=== PATIENT | male | born 1970 | race Caucasian/White ===

== ENCOUNTER 2020-05-27 08:56 | Observation (INO) | payer BC ==
[~2020-05-27] VITALS: Ht 175.3 cm; Wt 74.8 kg
[2020-05-27] VITALS (7 sets, daily range): BP systolic 105–119; BP diastolic 52–79
[2020-05-27] MEDS ORDERED: SODIUM CHLORIDE 0.9% 1000ML 1,000 ML IV STA (09:02)
--- NOTE | 2020-05-27 09:07 | Emergency Department Note ---
History of Present Illnes History of Present Illness Chief Complaint: Abdominal Complaints History of Present Illness This is a 49 year old male with migratory abd pain which started yesterday at 0230 generalized and has now localized to the RLQ region . Onset (how long ago): day(s) Radiation: Reports abdomen Severity: moderate Onset quality: gradual Duration (how long): day(s) (1) Timing of current episode: constant Progression: worsening Chronicity: new Context: Denies recent illness, Denies recent surgery, Denies recent immobilization, Denies recent travel, Denies trauma/injury, Denies new medications, Denies hx of DVT/PE, Denies non-compliance w/ medications, Denies other Relieving factors: none Exacerbating factors: none Associated symptoms: Denies denies other symptoms, Denies confusion, Denies chest pain, Denies cough, Denies diaphoresis, Denies fever/chills, Denies headaches, Denies loss of appetite, Denies malaise, Denies nausea/vomiting, Denies rash, Denies seizure, Denies shortness of breath, Denies syncope, Denies weakness, Denies other Treatments prior to arrival: none Past Medical/Family History Physician Review I have reviewed the patient's past medical and family history. Any updates have been documented here. Past Medical History Recent Fever: No Clinical Suspicion of Infectio: No New/Unexplained Change in Ment: No Past Medical History: None Past Surgical History: None Other Surgery: colonoscopy Social History Smoking Cessation: Never Smoker Alcohol Use: None Any Illegal Drug Use: No Review of Systems Review of Systems Constitutional: Reports no symptoms EENTM: Reports no symptoms Cardiovascular: Reports no symptoms Respiratory: Reports no symptoms Gastrointestinal: Reports abdominal pain Genitourinary: Reports no symptoms Musculoskeletal: Reports no symptoms Integumentary: Reports no symptoms Neurological: Reports no symptoms Psychological: Reports no symptoms Endocrine: Reports no symptoms Hematological/Lymphatic: Reports no symptoms Physical Exam Related Data Allergies: Coded Allergies: No Known Allergies (Unverified , 05/27/20) Physical Exam CONSTITUTIONAL Constitutional: Present well-developed, Present well-nourished HENT HENT: Present normocephalic, Present atraumatic, Present oropharynx clear/moist, Present nose normal HENT L/R: Present left ext ear normal, Present right ext ear normal EYES Eyes: Reports PERRL, Reports conjunctivae normal NECK Neck: Present ROM normal PULMONARY Pulmonary: Present effort normal, Present breath sounds normal CARDIOVASCULAR Cardiovascular: Present regular rhythm, Present heart sounds normal, Present capillary refill normal, Present normal rate GASTROINTESTINAL Abdominal: Present soft, Present bowel sounds normal, Present tender (RLQ) GENITOURINARY Genitourinary: Present exam deferred SKIN Skin: Present warm, Present dry MUSCULOSKELETAL Musculoskeletal: Present ROM normal NEUROLOGICAL Neurological: Present alert, Present oriented x 3, Present no gross motor or sensory deficits PSYCHOLOGICAL Psychological: Present mood/affect normal, Present judgement normal Results Laboratory Lab results reviewed: Yes Laboratory comments Laboratory Tests Test 05/27/20 09:17 05/27/20 09:16 Urine Color Yellow (YELLOW) Urine Clarity Clear (CLEAR) Urine pH 8.5 (5 - 7) Urine Specific [place] 1.020 (1.010-1.025) Urine Protein Negative (NEGATIVE) Urine Glucose (UA) Negative (NEGATIVE) Urine Ketones Negative (NEGATIVE) Urine Blood Negative (NEGATIVE) Urine Nitrite Negative (NEGATIVE) Urine Bilirubin Negative (NEGATIVE) Urine Urobilinogen 1 mg/dL (0.2 - 1) Urine Leukocyte Esterase Negative (NEGATIVE) Urine RBC 0-5 /HPF (0-5) Urine WBC 0-5 /HPF (0-5) Urine Epithelial Cells Few /LPF (NONE) Urine Bacteria Rare /HPF (NONE) White Blood Count 4.79 x10e3/uL (4.8-10.8) Red Blood Count 4.31 x10e6/uL (4.3-5.7) Hemoglobin 13.5 g/dL (14.0-18.0) Hematocrit 38.4 % (38.2-49.6) Mean Corpuscular Volume 89.1 fL (81-99) Mean Corpuscular Hemoglobin 31.3 pg (28-32) Mean Corpuscular Hemoglobin Concent 35.2 g/dL (31-35) Red Cell Distribution Width 12.7 % (11.7-14.4) Platelet Count 204 x10e3/uL (140-360) Neutrophils (%) (Auto) 49.6 % (38.7-80.0) Lymphocytes (%) (Auto) 33.2 % (18.0-39.1) Monocytes (%) (Auto) 10.4 % (4.4-11.3) Eosinophils (%) (Auto) 5.8 % (0.0-6.0) Basophils (%) (Auto) 0.8 % (0.0-1.0) Neutrophils # (Auto) 2.4 (2.1-6.9) Lymphocytes # (Auto) 1.6 (1.0-3.2) Monocytes # (Auto) 0.5 (0.2-0.8) Eosinophils # (Auto) 0.3 (0.0-0.4) Basophils # (Auto) 0.0 (0.0-0.1) Absolute Immature Granulocyte (auto 0.01 x10e3/uL (0-0.1) Sodium Level 140 mmol/L (136-145) Potassium Level 4.4 mmol/L (3.5-5.1) Chloride Level 105 mmol/L (98-107) Carbon Dioxide Level 26 mmol/L (22-29) Anion Gap 13.4 mmol/L (8-16) Blood Urea Nitrogen 13 mg/dL (7-26) Creatinine 1.16 mg/dL (0.72-1.25) Estimat Glomerular Filtration Rate > 60 ML/MIN (60-) BUN/Creatinine Ratio 11 (6-25) Glucose Level 88 mg/dL (74-118) Calcium Level 9.0 mg/dL (8.4-10.2) Total Bilirubin 0.9 mg/dL (0.2-1.2) Aspartate Amino Transf (AST/SGOT) 23 IU/L (5-34) Alanine Aminotransferase (ALT/SGPT) 19 IU/L (0-55) Alkaline Phosphatase 44 IU/L (40-150) Total Protein 7.2 g/dL (6.5-8.1) Albumin 3.9 g/dL (3.5-5.0) Globulin 3.3 g/dL (2.3-3.5) Albumin/Globulin Ratio 1.2 (0.8-2.0) Lipase 17 U/L (8-78) Imaging Imaging results reviewed: Yes Impressions [place] [address] Patient Name: CASIE KHAN MR #: [id number] : 1970 Age/Sex: 49/M Req #: [id number] Adm Physician: Ordered by: JACKIE SMALL DO Report #: [id number] Location: ER Room/Bed: Procedure: [id number] CT/CT ABDOMEN/PELVIS W Exam Date: 05/27/20 Exam Time: 1015 REPORT STATUS: Signed EXAM: CT Abdomen and Pelvis WITH contrast INDICATION: Right lower quadrant abdominal pain. COMPARISON: None. TECHNIQUE: Abdomen and pelvis were scanned utilizing a multidetector helical scanner from the lung base to the pubic symphysis after administration of IV contrast. Coronal and sagittal reformations were obtained. Routine protocol was performed. Scan was performed when during portal venous phase. IV CONTRAST: 150 mL of Omnipaque 300 ORAL CONTRAST: Gastrografin and water mixture. RADIATION DOSE: Total DLP: 282.84 mGy*cm Estimated effective dose: (DLP x 0.015 x size factor) mSv COMPLICATIONS: None FINDINGS: LINES and TUBES: None. LOWER THORAX: 5 mm noncalcified nodule in the lateral left lung base on image 13 series 2. HEPATOBILIARY: No focal hepatic lesions. No biliary ductal dilation. GALLBLADDER: No radio-opaque stones or sludge. No wall thickening. SPLEEN: No splenomegaly. Millimeter low-attenuation lesion in the posterior inferior spleen on sagittal image 100 isn't specific, however, most likely benign in etiology. PANCREAS: No focal masses or ductal dilatation. ADRENALS: No adrenal nodules KIDNEYS/URETERS: Kidneys enhance symmetrically. No hydronephrosis. 4 mm low-attenuation lesion in the anterior lower pole of the right kidney is too small to be characterize, however, most likely a small cyst.. No stones. GI TRACT: No abnormal distention, wall thickening, or evidence of bowel obstruction. Appendix is dilated up to 1.1 cm in diameter, associated with surrounding fat stranding as seen on axial image 45 series 2, consistent with acute appendicitis. PELVIC ORGANS/BLADDER: Unremarkable. LYMPH NODES: No lymphadenopathy. VESSELS: Unremarkable. PERITONEUM / RETROPERITONEUM: No free air or fluid. BONES: Unremarkable. SOFT TISSUES: Unremarkable. IMPRESSION: 1. Acute noncomplicated appendicitis. No evidence of perforation or abscess formation. Signed by: Dr. Chuy Morris M.D. on 05/27/2020 10:41 AM Dictated By: RODERICK MORRIS MD, MD [id number] Transcribed By: MARY ANN on 05/27/20 1041 COPY TO: JACKIE SMALL DO~ Assessment & Plan Medical Decision Making MDM 49 yom presents with abdominal pain. CBC, CMP, UA and CTS ordered to r/o appendicitis, COVID-19 infection diverticulitis, UTI, kidney stone, perforated viscus, obstruction, ischemia, and biliary pathology Reassessment Reassessment time: 11:01 Reassessment Case d/w with Dr Yulissa Bajwa who agreed to see patient as a talent acquisition consultant Assessment & Plan Final Impression: (1) Appendicitis Depart Disposition: ADMITTED Medications in the ED Sodium Chloride 1,000 ml @ 0 mls/hr Q0M STAT IV Last administered on 05/27/20at 09:45; Admin Dose 1,000 MLS/HR; Start 05/27/20 at 09:02; Stop 05/27/20 at 09:03 Diatrizoate Meglum/ Diatrizoate Sod 30 ml STK-MED ONCE PO ; Start 05/27/20 at 09:13; Stop 05/27/20 at 09:07; Status DC Sodium Chloride 50 ml @ ud STK-MED ONCE .ROUTE ; Start 05/27/20 at 10:31; Stop 05/27/20 at 10:26; Status DC Iopamidol 74,000 mg STK-MED ONCE INJ ; Start 05/27/20 at 10:32; Stop 05/27/20 at 10:26; Status DC Piperacillin Sod/ Tazobactam Sod 50 ml @ 50 mls/hr Q6H IV ; Start 05/27/20 at 11:00; Stop 06/03/20 at 10:59 JACKIE SMALL DO May 27, 2020 09:07
[2020-05-27] MEDS ORDERED: DIATRIZOATE MEGL/DIATRIZOA SOD 30 ML BTL PO ONE (09:13)
[2020-05-27 09:34] LABS: BASOPHILS % 0.8 % (0.0-1.0); EOSINOPHILS # (AUTO) 0.3 (0.0-0.4); EOSINOPHILS % 5.8 % (0.0-6.0); HEMATOCRIT 38.4 % (38.2-49.6); HEMOGLOBIN 13.5 g/dL (14.0-18.0); LYMPHOCYTES # (AUTO) 1.6 (1.0-3.2); LYMPHOCYTES % 33.2 % (18.0-39.1); MEAN CORPUSCULAR HEMOGLOBIN 31.3 pg (28-32); MEAN CORPUSCULAR HGB CONC 35.2 g/dL (31-35); MEAN CORPUSCULAR VOLUME 89.1 fL (81-99); MONOCYTES # (AUTO) 0.5 (0.2-0.8); MONOCYTES % 10.4 % (4.4-11.3); NEUTROPHILS # (AUTO) 2.4 (2.1-6.9); NEUTROPHILS % 49.6 % (38.7-80.0); PLATELET COUNT 204 x10e3/uL (140-360); RED BLOOD COUNT 4.31 x10e6/uL (4.3-5.7); RED CELL DISTRIBUTION WIDTH 12.7 % (11.7-14.4)
[2020-05-27 09:44] LABS: CLARITY,URINE CLEAR (CLEAR); COLOR,URINE YELLOW (YELLOW)
[2020-05-27 09:45] LABS: BILIRUBIN,URINE NEGATIVE (NEGATIVE); KETONES,URINE NEGATIVE (NEGATIVE); LEUKOCYTE ESTERASE ,URINE NEGATIVE (NEGATIVE); NITRITE,URINE NEGATIVE (NEGATIVE); PROTEIN,URINE DIPSTICK NEGATIVE (NEGATIVE); RBC,URINE 0-5 /HPF (0-5); URINE UROBILINOGEN 1 mg/dL (0.2 - 1); WBC,URINE (MAN) 0-5 /HPF (0-5)
[2020-05-27 09:46] LABS: BACTERIA,URINE RARE /HPF; EPITHELIAL CELLS,URINE FEW /LPF
[2020-05-27 09:52] LABS: ALANINE AMINOTRANSFERASE 19 IU/L (0-55); ALBUMIN 3.9 g/dL (3.5-5.0); ALBUMIN/GLOBULIN RATIO 1.2 (0.8-2.0); ALKALINE PHOSPHATASE 44 IU/L (40-150); ANION GAP 13.4 mmol/L (8-16); BLOOD UREA NITROGEN 13 mg/dL (7-26); BUN/CREATININE RATIO 11 (6-25); CARBON DIOXIDE 26 mmol/L (22-29); CHLORIDE 105 mmol/L (98-107); CREATININE, SERUM 1.16 mg/dL (0.72-1.25); EST GLOMERULAR FILTRATION RATE > 60 ML/MIN (60-); GLUCOSE 88 mg/dL (74-118); POTASSIUM 4.4 mmol/L (3.5-5.1); SODIUM 140 mmol/L (136-145)
[2020-05-27] MEDS ORDERED: SODIUM CHLORIDE 0.9% 50ML 50 ML ONE (10:31)
[2020-05-27] MEDS ORDERED: IOPAMIDOL 370 MG/ML 200 ML INFUS..BTL INJ ONE (10:32)
--- NOTE | 2020-05-27 10:45 | Diagnostic Imaging Report ---
EXAM: CT Abdomen and Pelvis WITH contrast INDICATION: Right lower quadrant abdominal pain. COMPARISON: None. TECHNIQUE: Abdomen and pelvis were scanned utilizing a multidetector helical scanner from the lung base to the pubic symphysis after administration of IV contrast. Coronal and sagittal reformations were obtained. Routine protocol was performed. Scan was performed when during portal venous phase. IV CONTRAST: 150 mL of Omnipaque 300 ORAL CONTRAST: Gastrografin and water mixture. RADIATION DOSE: Total DLP: 282.84 mGy*cm Estimated effective dose: (DLP x 0.015 x size factor) mSv COMPLICATIONS: None FINDINGS: LINES and TUBES: None. LOWER THORAX: 5 mm noncalcified nodule in the lateral left lung base on image 13 series 2. HEPATOBILIARY: No focal hepatic lesions. No biliary ductal dilation. GALLBLADDER: No radio-opaque stones or sludge. No wall thickening. SPLEEN: No splenomegaly. Millimeter low-attenuation lesion in the posterior inferior spleen on sagittal image 100 isn't specific, however, most likely benign in etiology. PANCREAS: No focal masses or ductal dilatation. ADRENALS: No adrenal nodules KIDNEYS/URETERS: Kidneys enhance symmetrically. No hydronephrosis. 4 mm low-attenuation lesion in the anterior lower pole of the right kidney is too small to be characterize, however, most likely a small cyst.. No stones. GI TRACT: No abnormal distention, wall thickening, or evidence of bowel obstruction. Appendix is dilated up to 1.1 cm in diameter, associated with surrounding fat stranding as seen on axial image 45 series 2, consistent with acute appendicitis. PELVIC ORGANS/BLADDER: Unremarkable. LYMPH NODES: No lymphadenopathy. VESSELS: Unremarkable. PERITONEUM / RETROPERITONEUM: No free air or fluid. BONES: Unremarkable. SOFT TISSUES: Unremarkable. IMPRESSION: 1. Acute noncomplicated appendicitis. No evidence of perforation or abscess formation. Signed by: Dr. Chuy Rojas M.D. on 05/27/2020 10:41 AM
[2020-05-27] MEDS ORDERED: MORPHINE SULFATE 2 MG/ML SYR 1ML IV PRN ×2 (11:00→15:00)
[2020-05-27] MEDS ORDERED: SODIUM CHLORIDE 0.9% 1000ML 1,000 ML IV SCH (11:00)
[2020-05-27] MEDS ORDERED: ONDANSETRON HCL INJ 2MG/ML 2ML 2 MG/ML VIAL IV PRN ×2 (11:00→15:45)
[2020-05-27] MEDS ORDERED: PIPER-TAZ 3.375 GM 50 ML IV SCH (11:00)
--- OUTSIDE RECORDS SUMMARY | 2020-05-27 11:15 | XMS REPORT | Continuity of Care Document ---
Author Author [facility] Organization [facility] Address [address] [place] [id number] Phone Unavailable Care Team Providers Care Fleecer Name Role Phone JACKIE SMALL Unavailable Problems This patient has no known problems. Allergies, Adverse Reactions, Alerts This patient has no known allergies or adverse reactions. Medications This patient has no known medications. Procedures This patient has no known procedures. Results Test Description Test Time Test Comments Results Result Comments Source CT ABDOMEN/PELVIS W 2020-05-27 10:32:00 [facility] [address] [place] [address] Patient Name: CASIE KHAN MR #: [id number] : 1970 Age/Sex: 49/M Req #: [id number] Adm Physician: Ordered by: JACKIE SMALL DO Report #: [id number] Location: ER Room/Bed: Procedure: [id number] CT/CT ABDOMEN/PELVIS W Exam Date: 05/27/20 Exam Time: 1016 REPORT STATUS: Signed EXAM: CT Abdomen and Pelvis WITH contrast INDICATION: Right lower quadrant abdominal pain. COMPARISON: None. TECHNIQUE: Abdomen and pelvis were scanned utilizing a multidetector helical scanner from the lung base to the pubic symphysis after administration of IV contrast. Coronal and sagittal reformations were obtained. Routine protocol was performed. Scan was performed when during portal venous phase. IV CONTRAST: 150 mL of Omnipaque 300 ORAL CONTRAST: Gastrografin and water mixture. RADIATION DOSE: Total DLP: 282.84 mGy*cm Estimated effective dose: (DLP x 0.015 x size factor) mSv COMPLICATIONS: None FINDINGS: LINES and TUBES: None. LOWER THORAX: 5 mm noncalcified nodule in the lateral left lung base on image 13 series 2. HEPATOBILIARY: No focal hepatic lesions. No biliary ductal dilation. GALLBLADDER: No radio-opaque stones or sludge. No wall thickening. SPLEEN: No splenomegaly. Millimeter low-attenuation lesion in the posterior inferior spleen on sagittal image 100 isn't specific, however, most likely benign in etiology. PANCREAS: No focal masses or ductal dilatation. ADRENALS: No adrenal nodules KIDNEYS/URETERS: Kidneys enhance symmetrically. No hydronephrosis. 4 mm low-attenuation lesion in the anterior lower pole of the right kidney is too small to be characterize, however, most likely a small cyst.. No stones. GI TRACT: No abnormal distention, wall thickening, or evidence of bowel obstruction. Appendix is dilated up to 1.1 cm in diameter, associated with surrounding fat stranding as seen on axial image 45 series 2, consistent with acute appendicitis. PELVIC ORGANS/BLADDER: Unremarkable. LYMPH NODES: No lymphadenopathy. VESSELS: Unremarkable. PERITONEUM / RETROPERITONEUM: No free air or fluid. BONES: Unremarkable. SOFT TISSUES: Unremarkable. IMPRESSION: 1. Acute noncomplicated appendicitis. No evidence of perforation or abscess formation. Signed by: Dr. Chuy Morris M.D. on 05/27/2020 10:41 AM Dictated By: RODERICK MORRIS MD, MD [id number] Transcribed By: MARY ANN on 05/27/20 104 COPY TO: JACKIE SMALL DO
--- NOTE | 2020-05-27 12:16 | Consultation ---
DATE OF CONSULTATION: REASON FOR CONSULTATION: Acute appendicitis. 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 Thursday morning where he developed diffuse abdominal pain, poorly localized around the umbilicus and across it. The pain this morning localized to the right lower quadrant where it has persisted. Initially, the pain was very severe. No nausea, no vomiting, no diarrhea. No similar episodes in the past. PAST MEDICAL HISTORY: Unremarkable. PAST SURGICAL HISTORY: Unremarkable. ALLERGIES: NONE. SOCIAL HISTORY: He drinks socially and chews tobacco occasionally. FAMILY HISTORY: Noncontributory. REVIEW OF SYSTEMS: Significant for what has been stated. PHYSICAL EXAMINATION: GENERAL: A 49-year-old male, in no acute distress. He is awake, alert. HEAD, EYES, EARS, NOSE, AND THROAT: No acute process. LUNGS: Clear. HEART: Regular sinus rhythm. ABDOMEN: Deep tenderness in the right lower quadrant on palpation. Bowel sounds are present. RECTAL: Deferred. EXTREMITIES: No clubbing, cyanosis, or edema. LABORATORY DATA: Admission CBC reveals a normal white count, normal platelet. Hematocrit is 38.4. Admission chemistries are normal. Admission urine is unremarkable. The COVID test has been drawn and is pending. CT scan of the abdomen reveals changes consistent with acute appendicitis. ASSESSMENT: Acute appendicitis. PLAN: The plan is to proceed with laparoscopic appendectomy and possible open appendectomy. The procedure, indication, benefits, and risks have been discussed with the patient. He agreed with Surgery. He is aware the laparoscopic approach may always have to be converted into an open procedure. There is always a potential complication for a bleeding, infection. MD JOSE Swenson/JOSE ANTONIO /[id number]
--- NOTE | 2020-05-27 12:24 | Diagnostic Imaging Report ---
EXAMINATION: CHEST SINGLE (PORTABLE) INDICATION: Acute appendicitis. Preoperative evaluation. COMPARISON: None FINDINGS: TUBES and LINES: None. LUNGS: Lungs are well inflated. Lungs are clear. There is no evidence of pneumonia or pulmonary edema. PLEURA: No pleural effusion or pneumothorax. HEART AND MEDIASTINUM: The cardiomediastinal silhouette is unremarkable. BONES AND SOFT TISSUES: No acute osseous lesion. Soft tissues are unremarkable. UPPER ABDOMEN: No free air under the diaphragm. IMPRESSION: No acute thoracic abnormality. Signed by: Dr. Chuy Rojas M.D. on 05/27/2020 12:21 PM
[2020-05-27] MEDS ORDERED: BUPIVACAINE 0.25%/EPI 30ML SDV INJ ONE (13:08)
[2020-05-27] MEDS ORDERED: DOCUSATE SODIUM 100 MG CAP PO PRN (14:15)
--- OUTSIDE RECORDS SUMMARY | 2020-05-27 14:33 | XMS REPORT | Continuity of Care Document ---
Author Author [facility] Organization [facility] Address [address] [place] [phone] Phone Unavailable Care Team Providers Care Barrel Centerer Name Role Phone Radha ADAME Attphys Unavailable Radha ADAME Admphys Unavailable Problems This patient has no known problems. Allergies, Adverse Reactions, Alerts This patient has no known allergies or adverse reactions. Medications This patient has no known medications. Procedures This patient has no known procedures. Results Test Description Test Time Test Comments Results Result Comments Source CHEST SINGLE (PORTABLE) 2020-05-27 12:20:00 [place] [address] Patient Name: CASIE KHAN MR #: [id number] : 1970 Age/Sex: 49/M Req #: [id number] Adm Physician: RIGOBERTO ADAME MD Ordered by: JACKIE SMALL DO Report #: [id number] Location: [facility] Room/Bed: [place] [address] Procedure: [id number] DX/CHEST SINGLE (PORTABLE) Exam Date: 05/27/20 Exam Time: 1150 REPORT STATUS: Signed EXAMINATION: CHEST SINGLE (PORTABLE) INDICATION: Acute appendicitis. Preoperative evaluation. COMPARISON: None FINDINGS: TUBES and LINES: None. LUNGS: Lungs are well inflated. Lungs are clear. There is no evidence of pneumonia or pulmonary edema. PLEURA: No pleural effusion or pneumothorax. HEART AND MEDIASTINUM: The cardiomediastinal silhouette is unremarkable. BONES AND SOFT TISSUES: No acute osseous lesion. Soft tissues are unremarkable. UPPER ABDOMEN: No free air under the diaphragm. IMPRESSION: No acute thoracic abnormality. Signed by: Dr. Chuy Morris M.D. on 05/27/2020 12:21 PM Dictated By: RODERICK MORRIS MD, MD 122 Transcribed By: MARY ANN on 05/27/20 1221 COPY TO: JACKIE SMALL DO CT ABDOMEN/PELVIS W 2020-05-27 10:32:00 [place] [address] Patient Name: CASIE KHAN MR #: [id number] : 1970 Age/Sex: 49/M Req #: [id number] Adm Physician: Ordered by: JACKIE SMALL DO Report #: [id number] Location: ER Room/Bed: Procedure: [id number] CT/CT ABDOMEN/PELVIS W Exam Date: 05/27/20 Exam Time: 1015 REPORT STATUS: Signed EXAM: CT Abdomen and [...]
[2020-05-27] MEDS ORDERED: HYDROMORPHONE 1MG/1ML INJ IV PRN (15:45)
[2020-05-27] MEDS ORDERED: HYDROCODONE/APAP 7.5MG-325MG 1 EA TAB PO PRN (15:45)
--- NOTE | 2020-05-27 16:27 | Operative Report ---
DATE OF PROCEDURE: 05/27/2020 SURGEON: Celestine Bajwa MD PREOPERATIVE DIAGNOSIS: Acute appendicitis. POSTOPERATIVE DIAGNOSIS: Acute appendicitis. PROCEDURE PERFORMED: Laparoscopic appendectomy. ANESTHESIA: General endotracheal. ESTIMATED BLOOD LOSS: Less than 50 mL. DRAINS: None. COMPLICATIONS: None. INDICATIONS AND FINDINGS: The patient is a pleasant 49-year-old male, who developed abdominal pain on Thursday around 2 a.m. The pain was described as diffuse across the mid abdomen, localizing today to the right lower quadrant. He presented to the emergency room, where a CT scan revealed acute appendicitis. INTRAOPERATIVE FINDINGS: Acute appendicitis with an appendix that was located in a high-riding cecum near the liver. The appendix was stuck to the lateral abdominal wall gutter. The procedure was well tolerated. DESCRIPTION OF PROCEDURE: With the patient lying on the operative table in supine position after administration of general anesthesia, he was prepped and draped for laparoscopic cholecystectomy. The procedure was begun by establishing the pneumoperitoneum in the umbilical site after stab wound was made in that location and the cylinder and a saline drop test was performed and pneumoperitoneum was insufflated to 15 mm of pressure and then the 11/12 trocar placed in that location. We placed a right upper quadrant right midclavicular line close to the costal margin because of the high riding cecum and then we placed another 5 mm trocar in the suprapubic region along the midline and finally, we had to place a 5th trocar to allow exposure of the appendix due to the abnormal location in the epigastric region superior to the umbilicus. We began the laparoscopy, identified the tip of the appendix and identified the junction with the cecum and then we performed the appendectomy retrogradely. We made a small rent in the junction of the appendix with the cecum and then transected the appendix with a firing of the Endo-NESHA stapler with a blue load. After we did that, we then continued the dissection along the mesoappendix using a combination of electrocautery and the 5 mm staplers until we were able to detach the appendix. After we did that, we placed the appendix in an Endobag and removed it through the umbilical port. We then inspected the operative field. There was no bleeding. There was no evidence of any bowel injury. After ascertaining that we had suctioned out all the effluent fluid after the irrigation including blood clots. We went ahead and then released the pneumoperitoneum under direct vision with the camera. There was no bleeding. We closed the wounds using 0 Vicryl for the umbilical fascia, 3-0 Vicryl for the subcutaneous tissue in that location as well as subxiphoid port and the skin of all the ports was closed using isak. A 0.25% Marcaine with epinephrine was given as local block at the end of the case. The patient tolerated the procedure well and was taken to recovery room in stable condition. MD JOSE Swenson/MODL /[id number]
[2020-05-27] MEDS ORDERED: HYDROCODONE/APAP 5MG-325MG TAB PO PRN (16:45)
[2020-05-27] MEDS ORDERED: ACETAMINOPHEN 325 MG TAB PO PRN (16:45)
[2020-05-27] MEDS: PIPER-TAZ 3.375 GM 50 ML IV SCH ×2 (17:25→23:14)
[2020-05-27] MEDS: DEXTROSE 5%/LACTATED RINGERS 1,000 ML IV SCH ×2 (17:25→20:21)
[2020-05-27] MEDS ORDERED: FENTANYL CITRATE/PF 100MCG/2 ML INJ ONE (17:56)
[2020-05-27] MEDS ORDERED: MIDAZOLAM HCL 2 MG/2 ML VIAL ONE (17:56)
--- NOTE | 2020-05-27 18:23 | History and Physical ---
CHIEF COMPLAINT: Right lower quadrant abdominal pain. HISTORY OF PRESENT ILLNESS: A 49-year-old male with no past medical history. He presented to the ED with acute onset of right lower quadrant abdominal pain that began around 2:30 this morning. He reports initially with diffuse abdominal pain, kind of radiated eventually to his right lower quadrant. Due to the increasing worsening pain, he came into the ED for further evaluation and management. CT imaging was consistent with an underlying acute uncomplicated appendicitis. The patient was taken to the OR by General Surgery and he is now being seen and evaluated postoperatively. The patient is currently doing well with no complaints. He is alert, awake, and oriented on examination. He is on a clear liquid diet. REVIEW OF SYSTEMS: Pertinent positive: Right lower quadrant abdominal pain, decreased oral intake. The rest of 14-point review of systems are reviewed with the patient and are negative. ALLERGIES: NO KNOWN DRUG ALLERGIES. HOME MEDICATIONS: None. PAST MEDICAL HISTORY: Reports none. PAST SURGICAL HISTORY: Reports none. FAMILY HISTORY: None. SOCIAL HISTORY: No drugs. No alcohol. Does not smoke. Good social support. PHYSICAL EXAMINATION: VITAL SIGNS: Temperature is 97.4, pulse 60, respiratory rate is 16, blood pressure 130/76, and pulse ox 99% on room air. GENERAL: Not in acute distress. Alert and oriented x3. Cooperative on examination. HEENT: Head; normocephalic, atraumatic. Eyes; pupils are equal, round, and reactive to light bilaterally. Extraocular movements intact bilaterally. Throat; no evidence of erythema or exudates in the posterior pharynx. Has poor dentition. NECK: Supple. Good range of motion. PULMONARY: Clear to auscultation bilaterally. No wheezing, no rales, no rhonchi, no crackles appreciated. CARDIOVASCULAR: Positive S1 and S2. No murmurs, rubs, or gallops appreciated. ABDOMEN: Soft, nondistended, and nontender to palpation. Bowel sounds present. MUSCULOSKELETAL: Strength is 5/5 throughout. No evidence of any muscle deficits on examination. No weakness appreciated. NEUROLOGIC: Cranial nerves 2 through 12 grossly intact. No evidence of any neurological deficits on exam. SKIN: Intact. Warm to touch. Good cap refill. PSYCHIATRIC: Normal affect and mood. EXTREMITIES: No edema. Good range of motion throughout. LABORATORY FINDINGS: Show white count 4.7, hemoglobin 13.5, hematocrit is 38, and platelets of 204. Chemistry; sodium 140, potassium 4.4, chloride 105, bicarb 26, anion gap of 13, BUN is 13, creatinine is 1.1, glucose 88, and calcium is 9. Total bilirubin is 0.9, AST 23, ALT 19, and alkaline phosphatase 44. Total protein 7.2 and albumin is 3.8. Lipase is 17. Urinalysis was negative. Serology; coronavirus is pending. IMAGING STUDIES: CT of abdomen and pelvis shows acute uncomplicated appendicitis. No evidence of perforation or abscess formation. Chest x-ray was found to be negative. IMPRESSION: 1. Acute appendicitis, status post laparoscopic appendectomy. 2. Nausea with decreased oral intake. PLAN: At this time, the patient underwent status post laparoscopic appendectomy. He is currently doing well. Continue with pain control with oral Jones. Continue with IV antibiotics for now. He has been initiated on clear liquid diet. Put on SCDs for now. Lovenox tomorrow since he just had surgery this morning. Spoke with General surgery. If the patient does well, potential discharge tomorrow. MD DIANE Gauthier/MODL /[id number]
--- NOTE | 2020-05-27 19:30 | NUR ---
BEDSIDE SHIFT REPORT RECEIVED FROM DAY RN. ABDOMINAL DRESSING DRY AND INTACT. PT VOIDING WITHOUT DIFFICULTY. 20 G PIV LEFT FA PATENT WITH HEALTHY SITE. cALL LIGHT WITHIN REACH. BED IN LOW POSITION.
[2020-05-27] MEDS ORDERED: SEVOFLURANE INHAL SOLN 250 ML PEN BTL ONE (19:41)
[2020-05-27] MEDS ORDERED: PROPOFOL IV EMULSION 10 MG/ML 20 ML VIAL ONE (19:41)
[2020-05-27] MEDS ORDERED: DEXAMETHASONE SOD PHOS INJ 4 MG/ML VIAL ONE (19:41)
[2020-05-27] MEDS ORDERED: ONDANSETRON HCL INJ 2MG/ML 2ML 2 MG/ML VIAL ONE (19:41)
[2020-05-27] MEDS ORDERED: GLYCOPYRROLATE INJ 0.2 MG/ML VIAL ONE (19:41)
[2020-05-27] MEDS ORDERED: ROCURONIUM BROMIDE 10 MG/ML 5ML VIAL IV ONE (19:41)
[2020-05-27] MEDS ORDERED: ATROPINE SULFATE 1 MG/ML VIAL ONE (19:41)
[2020-05-27] MEDS ORDERED: NEOSTIGMINE 1 MG/ML 10ML VIAL ONE (19:41)
[2020-05-27] MEDS ORDERED: LIDOCAINE HCL 2% LOCAL INJ 5 ML SDV VIAL INJ ONE (19:41)
[2020-05-27] MEDS ORDERED: MELATONIN 5 MG TABLET PO PRN (21:00)
[2020-05-28] VITALS: BP 107/64
[2020-05-28 04:00] VITALS: BP 106/55
[2020-05-28 06:10] LABS: BASOPHILS % 0.1 % (0.0-1.0); EOSINOPHILS % 0.1 % (0.0-6.0); HEMATOCRIT 28.6 % (38.2-49.6); LYMPHOCYTES # (AUTO) 1.1 (1.0-3.2); LYMPHOCYTES % 10.3 % (18.0-39.1); MEAN CORPUSCULAR HEMOGLOBIN 32.1 pg (28-32); MEAN CORPUSCULAR VOLUME 91.7 fL (81-99); MONOCYTES # (AUTO) 1.1 (0.2-0.8); MONOCYTES % 9.6 % (4.4-11.3); NEUTROPHILS # (AUTO) 8.7 (2.1-6.9); NEUTROPHILS % 79.4 % (38.7-80.0); PLATELET COUNT 185 x10e3/uL (140-360); RED BLOOD COUNT 3.12 x10e6/uL (4.3-5.7); RED CELL DISTRIBUTION WIDTH 12.8 % (11.7-14.4)
[2020-05-28 06:28] LABS: ANION GAP 11.2 mmol/L (8-16); BLOOD UREA NITROGEN 9 mg/dL (7-26); BUN/CREATININE RATIO 8 (6-25); CARBON DIOXIDE 25 mmol/L (22-29); CHLORIDE 103 mmol/L (98-107); CREATININE, SERUM 1.06 mg/dL (0.72-1.25); EST GLOMERULAR FILTRATION RATE > 60 ML/MIN (60-); GLUCOSE 151 mg/dL (74-118); POTASSIUM 4.2 mmol/L (3.5-5.1); SODIUM 135 mmol/L (136-145)
[2020-05-28] MEDS: DEXTROSE 5%/LACTATED RINGERS 1,000 ML IV SCH (06:47)
[2020-05-28] MEDS: PIPER-TAZ 3.375 GM 50 ML IV SCH ×2 (06:50→14:13)
[2020-05-28 08:00] VITALS: BP 103/65
[2020-05-28 08:40] VITALS: BP 103/65
[2020-05-28 12:31] VITALS: BP 123/59
[2020-05-28 14:16] LABS: BASOPHILS % 0.4 % (0.0-1.0); EOSINOPHILS # (AUTO) 0.1 (0.0-0.4); EOSINOPHILS % 0.5 % (0.0-6.0); HEMATOCRIT 29.1 % (38.2-49.6); HEMOGLOBIN 9.9 g/dL (14.0-18.0); LYMPHOCYTES # (AUTO) 2.1 (1.0-3.2); LYMPHOCYTES % 18.4 % (18.0-39.1); MEAN CORPUSCULAR VOLUME 91.2 fL (81-99); MONOCYTES # (AUTO) 0.8 (0.2-0.8); MONOCYTES % 7.4 % (4.4-11.3); NEUTROPHILS # (AUTO) 8.2 (2.1-6.9); PLATELET COUNT 201 x10e3/uL (140-360); RED BLOOD COUNT 3.19 x10e6/uL (4.3-5.7); RED CELL DISTRIBUTION WIDTH 12.7 % (11.7-14.4)
--- NOTE | 2020-05-28 15:31 | NUR ---
Patient was cleared by Dr. Gaston. Dr said to discharge him home.
[2020-05-28 15:36] VITALS: BP 122/54
--- NOTE | 2020-05-28 15:37 | NUR ---
Patient was given discharge order by Dr. Nelson once surgery cleared him. Patient was given discharge instructions, prescriptions, and education. Patient verbalized understanding. Patient IV was removed at 1538 and covered with a C/D/I dressing. No other issues or complaints at this time. Addendum: 05/28/20 at 1648 by Nessa Card RN Patient refused wheelchair to car, he was walked with this senior copywriter to his 's car with no issues or complaints.
--- NOTE | 2020-05-29 02:22 | Discharge Summary ---
FINAL DISCHARGE DIAGNOSES: 1. Acute appendicitis status post laparoscopic appendectomy. 2. Nausea and decreased oral intake secondary to #1-resolved. CONSULTANTS: General Surgery. PHYSICAL EXAMINATION: VITAL SIGNS: Temp is 97.9 pulse 60, respiratory rate is 19, blood pressure 122/54 pulse ox 99% on room air. LABORATORY DATA: Show white count 10.9, hemoglobin 10, hematocrit 28.6, platelets of 185. Chemistry; sodium 135, potassium 4.3 chloride 103, bicarb 25, anion gap of 11, BUN 9, creatinine is 1, glucose is 151, calcium is 8. LFTs within normal range. Albumin 3.8. Lipase 17. Urinalysis negative. Serology, coronavirus is pending. Microbiology, none. IMAGING STUDIES: CT abdomen and pelvis shows acute noncomplicated appendicitis. No evidence of perforation or abscess formation. Chest x-ray shows no acute thoracic abnormality. HOSPITAL COURSE: A 49-year-old male, comes into the ED with complaints of right lower quadrant abdominal pain, found to have an acute appendicitis-General Surgery consultation. The patient underwent status post laparoscopic appendectomy performed on 05/27/2020. The patient did well postprocedurally with no complaints. Pain was well controlled. He was started on a clear liquid diet advanced to solid food and which he tolerated very well. He maintained on IV antibiotic therapy. The patient was discharged on oral antibiotics as well. His white count was slightly elevated prior to being discharged, all likely secondary to stress-induced, while he was afebrile, doing well, with no complaints. He is actually his tolerating diet well. General surgery also cleared the patient for discharge to home. The patient will follow up with General Surgery in the next 1 week time. The patient was advised, if with any issues to please come back to the ED for further evaluation and management. On the day of discharge, vital signs were stable. Labs reviewed and stable. The patient is seen and evaluated and examined thoroughly on the day of discharge. No other complaints. The patient verbalized understanding and agrees to plan of care to follow up accordingly as an outpatient with primary care physician in 1 week and General Surgery in 1 week's time. MEDICATIONS: See med reconciliation form including oral antibiotics was written for him. CONDITION: Stable. DIET: Heart healthy. In the event of any worsening symptoms, the patient was advised to come back to the ED for further evaluation. Discharge summary took greater than 35 minutes. MD DIANE Gauthier/JOSE ANTONIO /[id number]
== END 2020-05-28 16:33 | disposition home or self-care (01) ==
LOC: ER 09:05 → UNDOADMOB 11:00 → ERHOLD 11:00 → MED/SURG 14:30
PROVIDERS: ADMIT Internal Medicine; ATTEND Internal Medicine
DX: K35.80 Unspecified acute appendicitis (principal); Z11.59 Encounter for screening for other viral diseases
CPT/HCPCS: 36415 ×2; 44970; 71045; 74177; 80048; 80053; 81001; 83690; 85025 ×2; 88304; 93005; 96361; 99284; C1766; G0378 ×2; J0461; J1100; J2001; J2250; J2405; J2543 ×2; J2704; J2710; J3010; J7030; J7121 ×2; Q9967; U0002